=== PATIENT | female | born 1995 ===

== ENCOUNTER 2017-06-16 10:29 | Inpatient (IN) | payer OTHER ==
[2017-06-16] VITALS (19 sets, daily range): BP systolic 106–139; BP diastolic 55–81
[~2017-06-16] VITALS: Ht 162.6 cm; Wt 80.1 kg
[2017-06-16] MEDS ORDERED: PRENTAB9 PO (11:01)
[2017-06-16] MEDS ORDERED: LACTATED RINGER'S 1000 ML IV STA (11:08)
[2017-06-16] MEDS ORDERED: LR 1,000 ML IV SCH (11:08)
[2017-06-16 11:54] LABS: MEAN CORPUSCULAR HEMOGLOBIN 31.7 pg (27.0-33.0); MEAN CORPUSCULAR HGB CONC 34.3 g/dl (32.0-36.5); MEAN CORPUSCULAR VOLUME 92.6 fl (80.0-96.0); PLATELET COUNT, AUTOMATED 166 10^3/uL (150-450); RED CELL DISTRIBUTION WIDTH 12.1 % (11.5-14.5); WHITE BLOOD COUNT 9.6 10^3/uL (4.0-10.0)
[2017-06-16] MEDS ORDERED: miSOPROStol 50 MCG 1/2 TAB (S0191) PV ONE (12:00)
[2017-06-16] MEDS: LR 1,000 ML IV SCH (12:42)
[2017-06-16] MEDS ORDERED: NALBUPHINE HCL 10 MG/ML AMP (J2300) IV ONE (17:30)
[2017-06-16] MEDS ORDERED: PROMETHAZINE INJ 25 MG/ML VIAL (J2550) IV ONE (17:30)
[2017-06-16] MEDS ORDERED: OXYTOCIN DRIP 30 UNITS in APPROPRIATE DILUENT 1 EA IV SCH (18:45)
[2017-06-16] MEDS ORDERED: FENTANYL 2MCG/ML ROPIVACAINE 0.2% IN 0.9% NACL 200ML IVBAG As Ordered ONE (20:46)
[2017-06-16] MEDS ORDERED: ePHEDrine SULFATE 25 MG/5 ML(5MG/ML) SYRINGE IV PRN (22:15)
[2017-06-16] MEDS ORDERED: EPIDURAL COMMENT XX SCH (22:15)
[2017-06-16] MEDS ORDERED: NALOXONE INJ 0.4 MG/1 ML VIAL (J2310) IV PRN (22:15)
[2017-06-16] MEDS ORDERED: diphenhydrAMINE INJ 50MG/ML VIAL (J1200) IV PRN (22:15)
[2017-06-16] MEDS ORDERED: REFRIGERATOR IV KEYS XX PRN (22:15)
[2017-06-16] MEDS ORDERED: EPIDURAL/PCA KEYS XX PRN (22:15)
[2017-06-16] MEDS ORDERED: ONDANSETRON 4MG/2ML VIAL (J2405) IV PRN (22:15)
[2017-06-16] MEDS ORDERED: LACTATED RINGER'S 1000 ML IV PRN (22:15)
[2017-06-17] VITALS (12 sets, daily range): BP systolic 96–130; BP diastolic 52–72
[2017-06-17] MEDS ORDERED: METOCLOPRAMIDE INJ 10MG/2ML VIAL (J2765) IV PRN (03:15)
[2017-06-17] MEDS ORDERED: ACETAMINOPHEN 500 MG TAB PO PRN (03:15)
[2017-06-17] MEDS ORDERED: RHOGAM 300 MCG (1500 IU) INJ (J2790) IM SCH (03:15)
[2017-06-17] MEDS ORDERED: DIBUCAINE 1% OINTMENT 30GM TOP PRN (03:15)
[2017-06-17] MEDS ORDERED: DOCUSATE SODIUM 100 MG CAP PO PRN (03:15)
[2017-06-17] MEDS ORDERED: METHYLERGONOVINE MALEATE 0.2 MG TAB PO PRN (03:15)
[2017-06-17] MEDS ORDERED: MEASLES,MUMPS,RUBELLA VACCINE INJ (MMR-II) (90707) SC SCH (03:15)
[2017-06-17] MEDS ORDERED: PROMETHAZINE 25 MG TAB PO PRN (03:15)
[2017-06-17] MEDS ORDERED: MOM 30ML SUSPENSION UDC PO PRN (03:15)
[2017-06-17] MEDS: LR 1,000 ML IV SCH (07:44)
[2017-06-17] MEDS: FENTANYL/ROPIVACAINE/NACL BAG 200 ML EPIDURAL SCH ×2 (07:44→20:29)
[2017-06-17] MEDS: IBUPROFEN 800 MG TAB PO PRN ×2 (08:01→21:30)
[2017-06-17] MEDS: PRENATAL VITAMINS CHEWABLE TABLET PO SCH (08:01)
[2017-06-18 06:00] VITALS: BP 121/64
--- NOTE | 2017-06-18 07:01 | IPNPDOC ---
Progress Note Date of Service Jun 18, 2017 Progress Note PPD 1 Debbi is a 22yo [id number] s/p uncomplicated at 02:44 on 06/17/17 after having PROM at 39w6d and undergoing augmentation of labor. She states she feels well today. Pain controlled. Vaginal bleeding is tapering. She is without issue. Ambulating/voiding/tolerating regular diet without issue. Denies f/c/n/v/SOB/CP. Vitals wnl, afebrile General: WDWN, NAD, resting comfortably in bed Abdomen: soft, NT, fundus firm at u-1cm Extremities: no tenderness with palpation of calves Assessment: Doing well PPD 1 after uncomplicated . Vitals wnl, benign exam. Hemodynamically stable with no e/o infection. Plan: -Continue routine care -Motrin/tylenol prn pain -regular diet -PNV, colace prn -Likely discharge tomorrow morning Dr. Marian Kim MD [facility] VS, I&O, 24H, Fishbone Vital Signs/I&O Vital Signs Date Time Temp Pulse Resp B/P (MAP) Pulse Ox O2 Delivery O2 Flow Rate FiO2 06/18/17 06:00 98.7 77 17 121/64 (83) 99 Room Air Marian Kim MD Jun 18, 2017 07:01
[2017-06-18] MEDS: PRENATAL VITAMINS CHEWABLE TABLET PO SCH (09:00)
[2017-06-18 17:47] VITALS: BP 123/65
[2017-06-19 06:14] VITALS: BP 116/63
--- NOTE | 2017-06-19 07:41 | DS.PDOC ---
Discharge Summary General Date of Admission Jun 16, 2017 at 10:29 Date of Discharge [id number] Discharge Summary Discharge Summary Admission Diagnosis: PROM Discharge Diagnosis: s/p uncomplicated spontaneous vaginal delivery Condition: stable Meds on discharge: Motrin, Lanolin, Tylenol Hospital Course: Pt is a 22 yo admitted with PROM, augmented with Pitocin. The pt progressed well through labor and had an uncomplicated . Please see delivery note for details. On PPD#2, the pt had normal VS, the pt was tolerating reg diet, ambulating, pain was well controlled, minimal lochia. She was desirous of discharge and was discharged home on PPD#2 with follow up in 6- 8wks in OB clinic. Home recommendations: Nothing in vagina for 6 weeks Vital Signs/I&Os Vital Signs Date Time Temp Pulse Resp B/P (MAP) Pulse Ox O2 Delivery O2 Flow Rate FiO2 06/19/17 06:14 98.9 86 17 116/63 (80) 06/18/17 06:00 99 Room Air Discharge Medications Scheduled Multivitamins/ ( 27-0.8 mg) 1 Tab Tab, 1 TAB PO DAILY, (Reported ) Allergies Coded Allergies: No Known Allergies (Unverified , 06/16/17) SESSIONS,DAKOTA Louis MD Jun 19, 2017 07:41
--- NOTE | 2017-06-19 07:42 | IPNPDOC ---
Text Note Date of Service The patient was seen on 06/19/17. NOTE PPD 1 Debbi is a 22yo [id number] s/p uncomplicated at 02:44 on 06/17/17 after having PROM at 39w6d and undergoing augmentation of labor. She states she feels well today. Pain controlled. Vaginal bleeding is tapering. She is without issue. Ambulating/voiding/tolerating regular diet without issue. Denies f/c/n/v/SOB/CP. Vitals wnl, afebrile General: WDWN, NAD, resting comfortably in bed Abdomen: soft, NT, fundus firm at u-2 cm Extremities: no tenderness with palpation of calves Assessment: Doing well PPD 2 after uncomplicated . Vitals wnl, benign exam. Hemodynamically stable with no e/o infection. Discharge. Sessions VS,Archie, I+O VS, Archie, I+O Vital Signs Date Time Temp Pulse Resp B/P (MAP) Pulse Ox O2 Delivery O2 Flow Rate FiO2 06/19/17 06:14 98.9 86 17 116/63 (80) 06/18/17 06:00 99 Room Air SESSIONS,DAKOTA Louis MD Jun 19, 2017 07:42
[2017-06-19] MEDS: PRENATAL VITAMINS CHEWABLE TABLET PO SCH (09:00)
[2017-06-19] MEDS ORDERED: DIBU1OIN TOP (10:12)
[2017-06-19] MEDS ORDERED: ACET50TA PO (10:12)
[2017-06-19] MEDS ORDERED: MOTR200T44 PO (10:12)
[2017-06-19] MEDS ORDERED: COLA100C5 PO (10:12)
== END 2017-06-19 11:10 | disposition home or self-care (01) | DRG 775 ==
LOC: M LDI 10:29 → M OBS 06-17 04:57
PROVIDERS: ADMIT Student in an Organized Health Care Education/Training Program; ATTEND Student in an Organized Health Care Education/Training Program
PROC: 10907ZC Drainage of Amniotic Fluid, Therapeutic from Products of Conception, Via Natural or Artificial Opening (ICD-10-PCS; 2017-06-16)
PROC: 10E0XZZ Delivery of Products of Conception, External Approach (ICD-10-PCS; principal; 2017-06-17)
PROC: 0HQ9XZZ Repair Perineum Skin, External Approach (ICD-10-PCS; 2017-06-17)
DX: O70.0 First degree perineal laceration during delivery (principal); Z37.0 Single live birth; Z3A.39 39 weeks gestation of pregnancy